=== PATIENT | male | born 1985 | race Caucasian/White ===

== ENCOUNTER 2022-11-04 10:59 | Emergency (ER) | payer BC, MEDICAID ==
[~2022-11-04] VITALS: Ht 175.3 cm; Wt 72.6 kg
[2022-11-04] MEDS ORDERED: MUPI22OI2 TP (11:44)
[2022-11-04] MEDS ORDERED: DOXY100C2 PO (11:44)
[2022-11-04] MEDS ORDERED: LEVO750T46 PO (11:44)
[2022-11-04 11:55] VITALS: BP 128/68; TEMP 98.3; O2SAT 98
== END 2022-11-04 12:11 | disposition home or self-care (01) ==
LOC: ER 11:06
DX: L73.9 Follicular disorder, unspecified (principal); L03.311 Cellulitis of abdominal wall; I10 Essential (primary) hypertension; Z60.2 Problems related to living alone